=== PATIENT | female | born 1955 | race African-American/Black ===

== ENCOUNTER 2019-12-15 07:54 | Day surgery (SDC) | payer MEDICARE, OTHER ==
[~2019-12-15] VITALS: Ht 170.2 cm; Wt 77.6 kg
--- NOTE | ~2019-12-15 | OP ---
PATIENT NAME: DAISY GLEASON MEDICAL RECORD: [id number] :59 LOCATION:[facility] ADMISSION DATE: SURGEON: MELANIA SEPULVEDA MD DATE OF OPERATION: 12/15/2019 REFERRED BY: Dr. Santiago Blount of [place]. 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 OPERATION PERFORMED: Right upper extremity AV graftogram with balloon angioplasty of venous anastomotic stenosis plus treatment with a Lutonix drug-coated balloon and also removal of left femoral tunneled dialysis catheter under fluoroscopy. ANESTHESIA: General with LMA per SURGERY CENTER ADMINISTRATOR. SURGEON: Melania Sepulveda MD PREOPERATIVE NOTE: Ms. Gleason is a 64-year-old -British female from [place], [place]. She has end-stage renal disease due to severely and poorly controlled diabetes and hypertension. She is on hemodialysis in [place] with Dr. Santiago Blount is her pharmacologist. She has had numerous dialysis access failures in the past. I have recently operated on her and implanted and Artegraft in her right arm as a proximal loop between the proximal brachial artery and proximal basilic vein. That loop has functioned well and matured and is now being used as a reliable dialysis access. She still has a tunneled dialysis catheter in the left groin, which needs to be removed. Had a venogram sometime ago. I thought there was some evidence of possible subclavian venous stenosis and before I removed her femoral catheter, I think we should make sure, so I plan to do a fistulogram today first. DESCRIPTION OF PROCEDURE: Under general anesthesia with an LMA per SURGERY CENTER ADMINISTRATOR, the patient was prepped and draped in sterile manner. The right arm loop artery graft was accessed with micropuncture technique and contrast injected with digital C-arm recording subtracted images. There was approximately 60% venous anastomotic stenosis present and no other lesions. Flow was excellent all the way to the right atrium and there was no evidence of any hemodynamically significant central vein stenosis. VA stenosis was then treated with balloon angioplasty. An 8-Divehi introducer was inserted and the stenosis, first dilated with an 8 mm angioplasty balloon, which achieved full effacement very easily indicating potentially under sizing of the balloon or a very elastic lesion. A followup contrast injection revealed persistent narrowing in that area. I opted then to perform a drug-coated balloon treatment and shows a 10 mm diameter Lutonix balloon, which was 60 mm in diameter and I used about according to protocol to dilate the anastomotic stenosis. The balloon was inflated to 11 atmospheres and held inflated with full effacement for 2 minutes. It was then deflated and removed. Contrast injection revealed 0 residual stenosis at that site and very rapid flow through the anastomosis into the axillary vein. OPERATIVE REPORT [id number] DAISY GLEASON The 8-Divehi sheath was then removed and hemostasis obtained with a [id number]-[id number] 4-0 Prolene suture and a period of direct pressure. Sterile dressing was applied. The left thigh was then prepped and draped and prepared for removal of the tunneled dialysis catheter in the femoral position. This was done under C-arm angiography. The catheter lay high in the inferior vena cava up into the retroduodenal or even possibly retrohepatic cava. The catheter was freed in the tunnel. The Dacron felt cuff had very tenuous attachments and the catheter was withdrawn while watching this with the C-arm and no abnormalities or difficulty was encountered during this process. Hemostasis was obtained by holding direct pressure for a period of 5 minutes. The terminal 3 inches of the catheter or the catheter tip were then sent for culture and sensitivity. There was no clinical evidence of infection of the body of the catheter. The patient was awakened and taken to the recovery room where she was noted to have good bruit pulsation and thrill over her graft and no bleeding in the left groin. She will be allowed to go home today and will not need follow up in my office unless Dr. Blount thinks that there is something that she needs or I need to look at. We will ask her dialysis unit to please remove her skin stitch from over her AV graft tomorrow. She is to resume her usual routine dialysis schedule renal ADA diet and all of her same home medications. I am adding Plavix 75 mg 1 p.o. daily. 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 TRANSINT:[id number] Voice Confirmation ID: [id number] DOCUMENT ID: [id number] cc: MELANIA Caceres MD CC: DR. SANTIAGO BLOUNT and SESAR DUNN [id number] DICTATION DATE: 12/15/19 1336 POWDER WORKER TNT: 12/16/19 0033 [facility] 12/15/19 [place] [id number] [facility], [facility]
[~2019-12-15 07:54] MED LIST: CIPRO500 MG PO; COREG25 MG PO; GABAPENTIN300 MG PO; KENALOG 0.1 % 115 GM TOPICAL; LEVOTHYROXINE100 MCG PO; NORVASC10 MG PO; NOVOLIN 70/30 110 ML SC; PEPCID AC20 MG PO; PLAVIX75 MG PO; PREDNISONE20 MG; PREDNISONE50 MG PO; RENA-VITE TABL0.8 MG PO; RESTORIL15 MG PO
[2019-12-15 08:42] LABS: BASOPHILS 0 % (0-2); EOSINOPHILS 0 % (0-7); HEMATOCRIT 40.1 % (36.0-48.0); HEMOGLOBIN 12.4 g/dL (12-16); LYMPHOCYTES 9.2 % (15-50); MCH 26.8 pg (26.0-34.0); MCHC 30.9 g/dL (31.0-37.0); MCV 86.6 fL (80.0-100.0); MEAN PLATELET VOLUME 9.4 fL (7.4-10.4); MONOCYTES 0.5 % (2-11); NEUTROPHILS 90.3 % (40-80); PLATELET COUNT 283 10x3/uL (130-400); RBC 4.63 10x6/uL (4.00-5.40); RDW 16.3 % (11.5-14.5); WBC 4.3 10x3/uL (4.8-10.8)
[2019-12-15 08:51] LABS: ANION GAP 18.1 mmol/L (8-16); CALCIUM 10.4 mg/dL (8.5-10.1); CARBON DIOXIDE 25.3 mmol/L (21.0-32.0); CREATININE - SERUM 5.3 mg/dL (0.6-1.3); POTASSIUM - SERUM 4.4 mmol/L (3.5-5.1)
[2019-12-15 08:56] LABS: INR 0.96 (0.85-1.17); PROTIME 12.7 SECONDS (11.6-15.0)
[2019-12-15 09:29] VITALS: BP 151/73; Ht 170.2 cm; Wt 77.6 kg
--- NOTE | 2019-12-15 13:10 | NUR ---
DR SEPULVEDA AT BEDSIDE . BRUIT/THRILL VERIFIED BY HIM.
--- NOTE | 2019-12-15 13:11 | NUR ---
1308 - PT AWAKENING, OPA OUT
--- NOTE | 2019-12-15 13:19 | NUR ---
DR TIRADO CONSULTED RE TREATMENT FOR [facility] OF 315. INSTRUCTED TO RETURN PT TO OUTPT SO THAT THE INSULIN USED BY OUTPT PREOPERATIVELY COULD BE USED POSTOP.
--- NOTE | 2019-12-15 16:23 | NUR ---
1330 ARRIVED TO PHASE 2 REPORT RECIEVED AND PT HAS A WORKING IV TO LEFT HAND. PERMA CATH REMOVED FROM LEFT UPPER LEG SMALL DRESSING CDI. 1345 REGULAR INSULIN GIVEN 10 UNITS IVP. 1415 BS PER FINGER STICK DONE 30MIN AFTER INSULIN GIVEN AND BS 244. ANESTHESIA NOTIFIED AND NO ORDERS GIVEN. SPOKE WITH DR THOMPSON. 1430 IV REMOVED AND INSTRUCTIONS GIVEN ABOUT DIET AND AVF. PT ABLE TO CHECK BS AT HOME. 1440 ASSISTED WITH GETTING DRESSED AND DISCHARGED IN FROM HOME
== END 2019-12-15 14:40 | disposition home or self-care (01) ==
LOC: D.OPS 07:54
PROVIDERS: Surgery; ATTEND Internal Medicine Nephrology
DX: N18.6 End stage renal disease (principal); Z99.2 Dependence on renal dialysis; I73.9 Peripheral vascular disease, unspecified; D68.69 Other thrombophilia; Z48.812 Encounter for surgical aftercare following surgery on the circulatory system; I25.10 Atherosclerotic heart disease of native coronary artery without angina pectoris; K21.9 Gastro-esophageal reflux disease without esophagitis; E78.00 Pure hypercholesterolemia, unspecified; I12.0 Hypertensive chronic kidney disease with stage 5 chronic kidney disease or end stage renal disease; E11.22 Type 2 diabetes mellitus with diabetic chronic kidney disease

== ENCOUNTER 2020-07-22 08:30 | Inpatient (IN) | payer MEDICARE, OTHER ==
[~2020-07-22] VITALS: Ht 170.2 cm; Wt 77.6 kg
[2020-07-22 09:08] LABS: ANION GAP 20.2 mmol/L (8-16); BASOPHILS 0.2 % (0-2); CALCIUM 9.6 mg/dL (8.5-10.1); CARBON DIOXIDE 22.1 mmol/L (21.0-32.0); CREATININE - SERUM 11.6 mg/dL (0.6-1.3); EOSINOPHILS 5.9 % (0-7); HEMATOCRIT 38.7 % (36.0-48.0); HEMOGLOBIN 12.4 g/dL (12-16); IMMATURE GRANULOCYTES 0.3 % (0-5); LYMPHOCYTES 20.7 % (15-50); MCV 87.4 fL (80.0-100.0); MEAN PLATELET VOLUME 9.1 fL (7.4-10.4); MONOCYTES 3.7 % (2-11); NEUTROPHILS 69.2 % (40-80); PLATELET COUNT 273 10x3/uL (130-400); RBC 4.43 10x6/uL (4.00-5.40); RDW 16.5 % (11.5-14.5); WBC 5.9 10x3/uL (4.8-10.8)
[2020-07-22 09:14] LABS: POTASSIUM - SERUM 6.3 mmol/L (3.5-5.1)
[2020-07-22 09:24] LABS: INR 0.96 (0.85-1.17); PROTIME 12.7 SECONDS (11.6-15.0)
[2020-07-22 11:39] VITALS: BP 140/70
[2020-07-22 12:30] LABS: POTASSIUM - SERUM 5.8 mmol/L (3.5-5.1)
--- NOTE | 2020-07-22 12:56 | NUR ---
0945-critical k+ results received. 1000-renal agricultural production engineer notified, not there patient. 1010-lab results called to surgery for Dr. Mcbride. 1020-phone orders recd. 1240-repeat k+ and glucose called to surgery for Dr. Mcbride.
--- NOTE | 2020-07-22 16:17 | NUR ---
9417 REPORT GIVEN TO NURSE ON MED 2. REPORT GIVEN TO HERNAN ANNA
[2020-07-22 17:08] VITALS: BP 131/73; BMI 26.9
[2020-07-22 23:04] VITALS: BP 131/57
[2020-07-23 02:06] VITALS: BP 131/60
[2020-07-23 05:53] VITALS: BP 110/75
--- NOTE | 2020-07-23 05:56 | NUR ---
I have reviewed this patient and I concur with the Shift Assessment completed by the Licensed Practical Nurse today this shift.
[2020-07-23 08:03] LABS: ANION GAP 22.8 mmol/L (8-16); CALCIUM 9.1 mg/dL (8.5-10.1); CARBON DIOXIDE 19.9 mmol/L (21.0-32.0); CREATININE - SERUM 12.1 mg/dL (0.6-1.3)
[2020-07-23 08:12] LABS: POTASSIUM - SERUM 6.7 mmol/L (3.5-5.1)
[2020-07-23 08:23] VITALS: BP 141/62
--- NOTE | 2020-07-23 09:20 | NUR ---
PT AWAKE AND ORIENTED, PROPPED RIGHT OFF THE BAT THIS MORNING, TAKEN TO HAVE HER FISTUAL DCLOTTED SHORLTY THEREAFTER. PT HAS CRITICAL K, INFROMED AEMLIA HENDERSON. ORDERS PLACED BUT CAN NOT ADMINSITER UNTIL PT RETURNS FROM SURGERY. STILL GONE AT HIS TIME. WILL CNT. TO MONITOR.
--- NOTE | 2020-07-23 09:41 | NUR ---
DR SEPULVEDA ONLY PERFORMED THE HEMO-SPLIT INSERTION D/T K+ BEING ELEVATED.
--- NOTE | 2020-07-23 10:07 | NUR ---
I have reviewed this patient and I concur with the Shift Assessment completed by the Licensed Practical Nurse today this shift.
[2020-07-23 11:38] VITALS: BMI 26.8
[2020-07-23 11:56] VITALS: BP 146/71
[2020-07-23 12:28] VITALS: Ht 170.2 cm; Wt 77.6 kg
[2020-07-23 16:08] VITALS: BP 146/72
--- NOTE | 2020-07-23 16:48 | NUR ---
pt escorted to dialysis VIA WHEELCHAIR.
[2020-07-23 17:53] LABS: POTASSIUM - SERUM 6.5 mmol/L (3.5-5.1)
[2020-07-23 20:30] VITALS: BP 156/79
--- NOTE | 2020-07-23 20:30 | NUR ---
RECEIVED BACK FROM DIALYSIS, HEATED UP PT DINNER, PT DENIES ANY OTHER NEEDS AT THIS TIME, BED IS LOW, SRX2, CALL LIGHT IN REACH, WILL CONTINUE PLAN OF CARE
[2020-07-24 00:30] VITALS: BP 155/72
[2020-07-24 04:30] VITALS: BP 95/62
--- NOTE | 2020-07-24 05:00 | NUR ---
I have reviewed this patient and I concur with the Shift Assessment completed by the Licensed Practical Nurse today this shift.
[2020-07-24 08:32] VITALS: BP 112/67
[2020-07-24 09:25] LABS: BASOPHILS 0.2 % (0-2); EOSINOPHILS 5.1 % (0-7); HEMATOCRIT 34.7 % (36.0-48.0); HEMOGLOBIN 11.4 g/dL (12-16); IMMATURE GRANULOCYTES 0.9 % (0-5); LYMPHOCYTES 24.7 % (15-50); MCH 28.1 pg (26.0-34.0); MCHC 32.9 g/dL (31.0-37.0); MCV 85.7 fL (80.0-100.0); MEAN PLATELET VOLUME 10.1 fL (7.4-10.4); MONOCYTES 9.7 % (2-11); NEUTROPHILS 59.4 % (40-80); RBC 4.05 10x6/uL (4.00-5.40); WBC 4.5 10x3/uL (4.8-10.8)
[2020-07-24 09:26] LABS: PLATELET COUNT 137 10x3/uL (130-400)
[2020-07-24 09:46] LABS: ALBUMIN 3.4 g/dL (3.4-5.0); BILIRUBIN - TOTAL 0.26 mg/dL (0.2-1.3); CALCIUM 8.8 mg/dL (8.5-10.1); CARBON DIOXIDE 22.2 mmol/L (21.0-32.0); CREATININE - SERUM 10.2 mg/dL (0.6-1.3); PHOSPHOROUS 6.8 mg/dL (2.5-4.9); PROTEIN - SERUM 7.4 g/dL (6.4-8.2)
[2020-07-24 09:50] LABS: ANION GAP 17.8 mmol/L (8-16)
[2020-07-24 12:40] VITALS: BP 141/71
--- NOTE | 2020-07-24 13:35 | NUR ---
PT AWAKE AND ORIENTED, LYING IN BED. TOOK ALL MEDICATIONS WITHOUT COMPLICATIONS. PT PATIENTLY WAITING ON PROCEDURE PREDETERMINTED TO PARTAKE PLACE IN [place]. CL IN REACH, SRX2.
--- NOTE | 2020-07-24 13:53 | OP ---
PATIENT NAME: DAISY GLEASON MEDICAL RECORD: [id number] :59 LOCATION:D.M2 D.2108 ADMISSION DATE:07/23/20 SURGEON: MELANIA SEPULVEDA MD DATE OF OPERATION: 07/23/2020 REFERRED BY: Dr. Santiago Blount of [place]. PREOPERATIVE DIAGNOSES: End-stage renal disease, dependence on hemodialysis, thrombosed arteriovenous graft of right arm and hyperkalemia. ADDITIONAL DIAGNOSIS: Insulin-dependent diabetes. OPERATION PERFORMED: Ultrasound-guided insertion of 35 cm HemoSplit tunneled dialysis catheter via the right common femoral vein with ultrasound and fluoroscopic guidance with image documentation. SURGEON: Melania Sepulveda MD ANESTHESIA: Local 1% lidocaine plus TIVA per LICENSED JOURNEYMAN ELECTRICIAN. PREOPERATIVE NOTE: This 65-year-old -[place] female from [facility], has end-stage renal disease and is on hemodialysis and has been dialyzing with a right arm AV graft, which I last worked on her implant back in December. It had thrombosed. She did not have transportation to get OPC on , so she came up to [place] on Saturday for me to operate. I was unable to get her into the operating room Saturday. She was hyperkalemic and that was treated yesterday morning with insulin and glucose. She was kept in overnight observation. This morning, her potassium level was drawn late and is not known before she went to the OR that turned out to be 6.7 and for that reason we are planning not to do a declot, but instead to implant a tunneled dialysis catheter so that she can have dialysis today and return her to the operating room Saturday for declot. She can have dialysis Saturday morning as well. DESCRIPTION OF PROCEDURE: Under TIVA and monitored per LICENSED JOURNEYMAN ELECTRICIAN, the patient first was examined with ultrasound and I noted that both right and left internal jugular veins are occluded due to prior catheters. The groins were then examined and I noted that the patient had had prior catheters in both femoral veins. The left femoral vein was difficult to see clearly sonographically and the right was more normal sonographically was compressible of normal caliber and I elected to place the catheter on the right side. She was then reprepped and redraped and local anesthetic 1% lidocaine was infiltrated in the skin and subcutaneous tissues as needed. A small incision was made beneath the groin crease and with continuous ultrasound guidance, micropuncture needle and wire was placed in the common femoral vein. A catheter wire exchange was then performed under fluoroscopy, serial dilators were inserted over the .038 guidewire and then a peel-away sheath dilator was inserted and the wire removed. I chose a 35 cm HemoSplit, made a small incision in the anterior thigh about a hand's breadth distal to the groin incision and placed the catheter in a subcutaneous tunnel from that up to the groin incision and then inserted it through the peelaway sheath under fluoroscopy and the sheath was removed. The catheter passed well up into the inferior vena cava without any kinks or other positioning complications. No contrast was injected due to the patient's history of iodine allergy. OPERATIVE REPORT [id number] DAISY GLEASON The catheter was then aspirated, free return of blood was confirmed from each lumen. The catheter was then flushed with saline and then heparin-locked, clamped and capped. It was sutured to the skin near the entry site with 2-0 Prolene and the groin incision closed with interrupted inverted 3-0 Vicryl and Dermabond glue. It was dressed with Maxorb Ag, Tegaderm, and Cavilon skin prep. A standard CVL dressing with a chlorhexidine Biopatch and Cavilon skin prep was used to dress the catheter at the exit site. The patient was then awakened and in stable condition taken back to the recovery room where a blood sugar and potassium has been requested stat. PLAN: For nephrology to dialyze the patient here in the hospital today. She needs to be admitted inpatient status and on Saturday morning again have dialysis and I can take her back to the operating room on Saturday afternoon to do her declot procedure. Also, she will need a contrast allergy protocol prophylaxis, which will mean starting prednisone Saturday evening. TRANSINT:[id number] Voice Confirmation ID: [id number] DOCUMENT ID: [id number] cc: Dr. Santiago Haro Dialysis MELANIA Green MD at 1353 CC: DR. SANTIAGO BLOUNT and LETTY ROSSI MD [id number] DICTATION DATE: 07/23/20 1008 LARD BLEACHER: 07/23/20 1155 ADM IN [facility] [address] [place] [address]
--- NOTE | 2020-07-24 15:16 | NUR ---
PT AWAKE AND ORIENTED, UP ON SIDE OF BED CLEANING SELF. STATES HER DAUGHTER WILL BE HERE TO VISIT LATER. NO COMPLAINTS OR CONCERNS AT THIS TIME. CL IN REACH, SRX2.
--- NOTE | 2020-07-24 15:30 | NUR ---
I have reviewed this patient and I concur with the Shift Assessment completed by the Licensed Practical Nurse today this shift.
[2020-07-24 16:13] VITALS: BP 138/66
--- NOTE | 2020-07-24 19:30 | NUR ---
RECEIVED REPORT, WILL ASSUME CARE OF PT, WATCHING TV, DENIES ANY NEEDS AT THIS TIME, BED IS LOW, SRX2, CALL LIGHT IN REACH, WILL CONTINUE PLAN OF CARE
[2020-07-24 20:46] VITALS: BP 150/54
[2020-07-25 01:31] VITALS: BP 144/55
--- NOTE | 2020-07-25 01:37 | NUR ---
I have reviewed this patient and I concur with the Shift Assessment completed by the Licensed Practical Nurse today this shift.
[2020-07-25 05:41] VITALS: BP 161/74
[2020-07-25 06:54] LABS: BASOPHILS 0 % (0-2); EOSINOPHILS 0 % (0-7); HEMATOCRIT 37.2 % (36.0-48.0); HEMOGLOBIN 12.2 g/dL (12-16); IMMATURE GRANULOCYTES 0.3 % (0-5); LYMPHOCYTES 8.7 % (15-50); MCHC 32.8 g/dL (31.0-37.0); MCV 85.5 fL (80.0-100.0); MEAN PLATELET VOLUME 9.5 fL (7.4-10.4); MONOCYTES 0.5 % (2-11); NEUTROPHILS 90.5 % (40-80); RBC 4.35 10x6/uL (4.00-5.40); RDW 15.6 % (11.5-14.5); WBC 3.9 10x3/uL (4.8-10.8)
[2020-07-25 07:06] LABS: PLATELET COUNT 234 10x3/uL (130-400)
[2020-07-25 07:39] LABS: ALBUMIN 3.2 g/dL (3.4-5.0); BILIRUBIN - TOTAL 0.35 mg/dL (0.2-1.3); CALCIUM 8.7 mg/dL (8.5-10.1); CARBON DIOXIDE 21.5 mmol/L (21.0-32.0); CREATININE - SERUM 10.3 mg/dL (0.6-1.3); PROTEIN - SERUM 7.7 g/dL (6.4-8.2)
[2020-07-25 07:40] LABS: POTASSIUM - SERUM 6.5 mmol/L (3.5-5.1)
[2020-07-25 08:02] VITALS: BP 137/74
--- NOTE | 2020-07-25 08:56 | NUR ---
PT AWAKE AND ORIENTED, SITTING IN WHEELCHIAR. READY TO GO FOR HER SURGERY THIS AM. SPOKE WITH DAUGHTER ON THE PHONE, INFORMED OF VISITOR POLICY, VIKKI VERBALIZED UNDERSTANDING. PT EXPECTING TO GO HOME POST SURGERY., UNSURE IF THAT IS THE PLAN AT THIS TIME. WILL INVESTIGATE. WILL CNT. TO MONITOR. CL IN REACH, SRX2.
--- NOTE | 2020-07-25 09:58 | NUR ---
PT ESCORTED OUT VIA WHEELCHAIR TO DIAYLSIS
--- NOTE | 2020-07-25 14:58 | MORECARE ---
CASE MANAGEMENT DISCHARGE SUMMARY PATIENT: DAISY GLEASON JAYNA UNIT: [id number] ADM DATE: 07/23/20 AGE: 65 : 59 SEX: F ROOM/BED: D.2104 AUTHOR: HEENA NDIAYE PHYSICIAN: REFERRING PHYSICIAN: MELANIA SEPULVEDA MD DATE OF SERVICE: 07/25/20 Discharge Plan Patient Name: DAISY GLEASON [facility] [facility] 1955 Planned Disposition: Home Anticipated Discharge Date: Discharge Date: Expected LOS: Initial Reviewer: [email or web address] Initial Review Date: 07/25/2020 Generated: 07/25/20 3:58 pm DCPIA - Discharge Planning Initial Assessment Updated by [email or web address]: Nayely Hall on 07/25/20 2:57 pm * Is the patient Alert and Oriented? Yes * How many steps to enter\exit or inside your home? 0/0 * Pharmacy [facility] * Preadmission Environment Home Alone * ADLs Partial Dependent * Partial ADLs (Assistance needed) Ambulation * Equipment Bedside Commode Other Shower Chair Walker Wheelchair * Other Equipment Prosthesis * List name and contact numbers for known caregivers / representatives who currently or will assist patient after discharge: Rogelio Gleason - son - [phone] Ronnie Hwang - friend - [phone] * Verbal permission to speak to the caregivers and representatives has been obtained from the patient. Yes * Community resources currently utilized Private Duty Care * Please name any agencies selected above. Dialysis at [facility] in [facility] at 10:30 * Additional services required to return to the preadmission environment? No * Can the patient safely return to the preadmission environment? Yes * Has this patient been hospitalized within the prior 30 days at any hospital? No Patient Name: DAISY GLEASON Page [phone] at 1458 All edits/amendments must be made on the electronic document DICTATION DATE: 07/25/201457 BANK RUNNER: CLEMENT 07/25/201457 RPT#: [id number] DC DATE: STATUS: ADM IN [facility] [address] [place] [address] END OF REPORT
--- NOTE | 2020-07-25 15:29 | MORECARE ---
CASE MANAGEMENT DISCHARGE SUMMARY PATIENT: DAISY GLEASON JAYNA UNIT: [id number] ADM DATE: 07/23/20 AGE: 65 : 59 SEX: F ROOM/BED: D.2295 AUTHOR: ZELDA,DOC PHYSICIAN: REFERRING PHYSICIAN: MELANIA SEPULVEDA MD DATE OF SERVICE: 07/25/20 Discharge Plan Patient Name: DAISY GLEASON Facility: [facility]:[place] : 1955 Planned Disposition: Home Anticipated Discharge Date: Discharge Date: Expected LOS: Initial Reviewer: [email or web address] Initial Review Date: 07/25/2020 Generated: 07/25/20 4:29 pm Comments DCP- Discharge Planning Updated by [email or web address]: Nayely Hall on 07/25/20 2:[address] Patient Name: DAISY GLEASON Admission Status: Elective Accout number: [id number] Admission Date: 07-23-2020 : 1955 Admission Diagnosis: Attending: MELANIA SEPULVEDA Current LOS: 2 Anticipated DC Date: Planned Disposition: Home Primary Insurance: MEDICARE A & B Discharge Planning Comments: CM met with patient to complete initial dc planning assessment. CM educated patient on the CM role and verbal consent given by patient to complete assessment. CM verified patient's address, phone number, and emergency contact phone numbers. Patient lives at home alone. At discharge patient plans to return and feels this is a safe discharge. CM discussed availability of home health, rehab services, and medical equipment. Patient denied known discharge needs at this time. Transportation provider at discharge will be her daughter, she is in the room now. She dialyzes MWF at 10:[address] [facility] in [place]. She states that she has a private care person that comes in [facility] every week that helps with house keeping (11.5 hours total). CM will continue to follow and will assist as needed with dc plans/needs. Satellite Project Site Monitor: Nayely Hall DCPIA - Discharge Planning Initial Assessment Updated by [email or web address]: Nayely Hall on 07/25/20 2:57 pm * Is the patient Alert and Oriented? Yes * How many steps to enter\exit or inside your home? 0/0 * Pharmacy [facility] * Preadmission Environment Home Alone * ADLs Partial Dependent * Partial ADLs (Assistance needed) Ambulation * Equipment Bedside Commode Other Shower Chair Walker Wheelchair * Other Equipment Prosthesis * List name and contact numbers for known caregivers / representatives who currently or will assist patient after discharge: Rogelio Gleason - son - [phone] Ronnie Hwang - jorge luis - [place]-[phone] * Verbal permission to speak to the caregivers and representatives has been obtained from the patient. Yes * Community resources currently utilized Private Duty Care * Please name any agencies selected above. Dialysis at [facility] in [facility] at 10:30 * Additional services required to return to the preadmission environment? No * Can the patient safely return to the preadmission environment? Yes * Has this patient been hospitalized within the prior 30 days at any hospital? No Coverage Notice Reviewer: [email or web address] Danica Hall Notice Issued Date-Time: 07/25/2020 14:00 Notice Type: IM Discharge Notice Notice Delivered To: Patient Relationship to Patient: Self Relief Manager Name: Delivery Method: HAND - Hand Delivered Lily Days: Prior Verbal Notification: Recipient Understood Notice: Yes Recipient Signature: Yes Med Rec Note Co-signed by Attending: Coverage Notice Comment: IMM explained, signed, given, copy placed in MR Last DP export: 07/25/20 1:58 Patient Name: DAISY GLEASON Page [phone] at 1529 All edits/amendments must be made on the electronic document DICTATION DATE: 07/25/201528 DATA WAREHOUSING MANAGER: CLEMENT 07/25/201528 RPT#: [id number] DC DATE: STATUS: ADM IN [facility] [address] [place] [address] END OF REPORT
--- NOTE | 2020-07-25 16:12 | NUR ---
PT TAKEN TO SURGERY.
--- NOTE | 2020-07-25 17:49 | NUR ---
PT IN SURGERY.
--- NOTE | 2020-07-25 18:01 | NUR ---
I have reviewed this patient and I concur with the Shift Assessment completed by the Licensed Practical Nurse today this shift.
--- NOTE | 2020-07-25 20:36 | NUR ---
PT HEMOSPLIT HAS BEEN HEPRIN LOCKED, FAMILY HAS BEEN CALLED,
--- NOTE | 2020-07-25 20:50 | NUR ---
PT DISCHARGED HOME WITH FAMILY
--- NOTE | 2020-07-26 09:01 | MORECARE ---
CASE MANAGEMENT DISCHARGE SUMMARY PATIENT: DASIY GLEASON JAYNA UNIT: [id number] ADM DATE: 07/23/20 AGE: 65 : 59 SEX: F ROOM/BED: D.6906 AUTHOR: ZELDA,DOC PHYSICIAN: REFERRING PHYSICIAN: MELANIA SEPULVEDA MD DATE OF SERVICE: 07/26/20 Discharge Plan Patient Name: DAISY GLEASON Facility: [facility]:[place] : 1955 Planned Disposition: Home Anticipated Discharge Date: Discharge Date: 07/25/2020 Expected LOS: Initial Reviewer: [email or web address] Initial Review Date: 07/25/2020 Generated: 07/26/20 10:01 am Comments DCP- Discharge Planning Updated by [id number]: Nayely Hall on 07/25/20 2:[address] Patient Name: DAISY GLEASON Admission Status: Elective Accout number: [id number] Admission Date: 07-23-2020 : 1955 Admission Diagnosis: Attending: MELANIA SEPULVEDA Current LOS: 2 Anticipated DC Date: Planned Disposition: Home Primary Insurance: MEDICARE A & B Discharge Planning Comments: CM met with patient to complete initial dc planning assessment. CM educated patient on the CM role and verbal consent given by patient to complete assessment. CM verified patient's address, phone number, and emergency contact phone numbers. Patient lives at home alone. At discharge patient plans to return and feels this is a safe discharge. CM discussed availability of home health, rehab services, and medical equipment. Patient denied known discharge needs at this time. Transportation provider at discharge will be her daughter, she is in the room now. She dialyzes MWF at 10:30 at [facility] in [place]. She states that she has a private care person that comes in [facility] every week that helps with house keeping (11.5 hours total). CM will continue to follow and will assist as needed with dc plans/needs. Instructor Painting: Nayely Hall DCPIA - Discharge Planning Initial Assessment Updated by [email or web address]: Nayely Hall on 07/25/20 2:57 pm * Is the patient Alert and Oriented? Yes * How many steps to enter\exit or inside your home? 0/0 * Pharmacy [facility] * Preadmission Environment Home Alone * ADLs Partial Dependent * Partial ADLs (Assistance needed) Ambulation * Equipment Bedside Commode Other Shower Chair Walker Wheelchair * Other Equipment Prosthesis * List name and contact numbers for known caregivers / representatives who currently or will assist patient after discharge: Rogelio Gleason - kim - [phone] Ronnie Hwang - jorge luis House1-[phone] * Verbal permission to speak to the caregivers and representatives has been obtained from the patient. Yes * Community resources currently utilized Private Duty Care * Please name any agencies selected above. Dialysis at [facility] in [facility] at 10:30 * Additional services required to return to the preadmission environment? No * Can the patient safely return to the preadmission environment? Yes * Has this patient been hospitalized within the prior 30 days at any hospital? No Coverage Notice Reviewer: [id number] Danica Hall Notice Issued Date-Time: 07/25/2020 14:00 Notice Type: IM Discharge Notice Notice Delivered To: Patient Relationship to Patient: Self Manager Integration Name: Delivery Method: HAND - Hand Delivered Lily Days: Prior Verbal Notification: Recipient Understood Notice: Yes Recipient Signature: Yes Med Rec Note Co-signed by Attending: Coverage Notice Comment: IMM explained, signed, given, copy placed in MR Last DP export: 07/25/20 2:29 Patient Name: DAISY GLEASON Page [phone] at 0901 All edits/amendments must be made on the electronic document DICTATION DATE: 07/26/20900 SCREENING TECHNICIAN: CLEMENT 07/26/20900 RPT#: [id number] DC DATE:07/25/20 STATUS: DIS IN [facility] [address] [place] [address] END OF REPORT
[2020-07-26 11:11] LABS: HEPATITIS C ANTIBODY 0.2 S/CO RAT (0.0-0.9)
== END 2020-07-25 20:51 | disposition home or self-care (01) | DRG 252 ==
LOC: D.OPS 08:30 → D.M2 08:30 → D.OPS 13:15 → D.M2 16:13 → D.OPS 07-23 10:27 → D.M2 07-23 10:27
PROVIDERS: Internal Medicine Nephrology; ADMIT Surgery; ATTEND Surgery
PROC: 06HM33Z Insertion of Infusion Device into Right Femoral Vein, Percutaneous Approach (ICD-10-PCS; 2020-07-23)
PROC: B54BZZA Ultrasonography of Right Lower Extremity Veins, Guidance (ICD-10-PCS; 2020-07-23)
PROC: 5A1D70Z Performance of Urinary Filtration, Intermittent, Less than 6 Hours Per Day (ICD-10-PCS; 2020-07-23)
PROC: 0JH63XZ Insertion of Tunneled Vascular Access Device into Chest Subcutaneous Tissue and Fascia, Percutaneous Approach (ICD-10-PCS; 2020-07-23 10:15)
PROC: 3E05317 Introduction of Other Thrombolytic into Peripheral Artery, Percutaneous Approach (ICD-10-PCS; 2020-07-25)
PROC: 03C73ZZ Extirpation of Matter from Right Brachial Artery, Percutaneous Approach (ICD-10-PCS; principal; 2020-07-25 09:00)
DX: T82.868A Thrombosis due to vascular prosthetic devices, implants and grafts, initial encounter (principal); N18.6 End stage renal disease; I12.0 Hypertensive chronic kidney disease with stage 5 chronic kidney disease or end stage renal disease; D68.59 Other primary thrombophilia; Y83.9 Surgical procedure, unspecified as the cause of abnormal reaction of the patient, or of later complication, without mention of misadventure at the time of the procedure; E87.5 Hyperkalemia; E11.22 Type 2 diabetes mellitus with diabetic chronic kidney disease; Z99.2 Dependence on renal dialysis